=== PATIENT | female | born 1985 | race Caucasian/White ===

== ENCOUNTER 2021-04-02 17:07 | Emergency (ER) | payer OTHER, MEDICARE ==
[~2021-04-02] VITALS: Ht 167.6 cm; Wt 113.4 kg
[2021-04-02 17:25] VITALS: BP 136/77
[2021-04-02] MEDS ORDERED: IBUP-1955 PO (17:37)
--- NOTE | 2021-04-02 17:37 | NUR ---
EMT AT BEDSIDE FOR ORTHOPEDIC PLACEMENT
[2021-04-02] MEDS ORDERED: ACET-2605 PO (17:51)
--- NOTE | 2021-04-02 17:56 | NUR ---
Patient discharged to home in stable condition. Written and verbal after care instructions given. Patient verbalizes understanding of instruction.
== END 2021-04-02 17:56 | disposition home or self-care (01) ==
LOC: ER 17:07
DX: M25.562 Pain in left knee (principal); Z98.890 Other specified postprocedural states; Z88.8 Allergy status to other drugs, medicaments and biological substances